=== PATIENT | male | born 1975 | race Caucasian/White ===

== ENCOUNTER → 2020-06-09 | Day surgery (SDC) | payer BC, OTHER ==
[2020-06-05 11:27] LABS: BASOPHILS # (AUTO) 0.1 (0.0-0.1); BASOPHILS % 0.7 % (0.0-1.0); EOSINOPHILS # (AUTO) 0.2 (0.0-0.4); HEMATOCRIT 43.9 % (38.2-49.6); HEMOGLOBIN 14.7 g/dL (14.0-18.0); LYMPHOCYTES # (AUTO) 3.1 (1.0-3.2); LYMPHOCYTES % 34.9 % (18.0-39.1); MEAN CORPUSCULAR HEMOGLOBIN 30.6 pg (28-32); MEAN CORPUSCULAR HGB CONC 33.5 g/dL (31-35); MEAN CORPUSCULAR VOLUME 91.3 fL (81-99); MONOCYTES # (AUTO) 0.5 (0.2-0.8); MONOCYTES % 5.5 % (4.4-11.3); NEUTROPHILS % 56.5 % (38.7-80.0); PLATELET COUNT 249 x10e3/uL (140-360); RED BLOOD COUNT 4.81 x10e6/uL (4.3-5.7); RED CELL DISTRIBUTION WIDTH 12.3 % (11.7-14.4)
[2020-06-05 11:44] LABS: ALBUMIN/GLOBULIN RATIO 1.3 (0.8-2.0); ANION GAP 12.1 mmol/L (8-16); CALCIUM 9.2 mg/dL (8.4-10.2); CREATININE, SERUM 1.29 mg/dL (0.72-1.25); POTASSIUM 4.1 mmol/L (3.5-5.1)
[~2020-06-09] VITALS: Ht 180.3 cm; Wt 102.1 kg
[2020-06-09] VITALS (15 sets, daily range): BP systolic 102–131; BP diastolic 51–83
[~2020-06-09] MED LIST: ALPRAZOLAM 0.5 MG TAB ONE; ASPIR 8181 MG PO; ASPIRIN 325 MG TAB ONE; BIVALRIUDIN 250 MG/VIAL VIAL IV ONE; CRESTOR10 MG PO; DIPHENHYDRAMINE HCL 25 MG CAP ONE; FENOFIBRATE145 MG; FENTANYL CITRATE/PF 100MCG/2 ML INJ ONE; HEPARIN SOD (PORCINE) 1000 UNIT/ML 30ML ONE; HEPARIN SOD/SOD CHLORIDE 2,000 ML ONE; IOPAMIDOL 300MG/ML 100 ML INFUS..BTL IV ONE; IOPAMIDOL 370 MG/ML 200 ML INFUS..BTL INJ ONE; LIDOCAINE HCL 2% LOCAL 20 ML VIAL ONE; MIDAZOLAM HCL 2 MG/2 ML VIAL ONE; NITROGLYCERIN/D5W 200 MCG/ML 250 ML ONE; PLAVIX75 MG PO; PRASUGREL 10 MG TAB ONE; RANEXA500 MG PO; SODIUM CHLORIDE 0.9% 1000ML 1,000 ML ONE; SODIUM CHLORIDE 0.9% 50ML 50 ML ONE; WELLBUTRIN75 MG PO
--- NOTE | 2020-06-09 08:45 | NUR ---
0845amRECEIVING NOTE [employer] REC[employer] DEPT............................................................... Bedside report received from Riddhi HARRIS. Identifierx2. Alert oriented and appropriate, PERRLA, respirations even and unlabored to room air. Pulses x4 extremities equal and strong. Pedal pulses PT/DP X2 1+/1+ DP (palpable),Pt x2 1+/1+ (Doppler) and marked. Cap fill brisk < 3 sec. Skin warm and dry integrity appears D/I IV 20g to rt arm 100cchr, presents healthy w/o s/s of infiltration or complaint. Abdomen soft and supple. pt offered toileting, denies need to urinate or defecate. No personal affects with patient. Family at bedside .. Pt and family verbalizes understanding of POC. Currently w/o complaint of pain or need. ds/rn
--- NOTE | 2020-06-09 10:00 | NUR ---
1000am rt groin site no gross issues pain,pallor,pressure or dysrhythmia.Hob up and tolerating po intake . gone for lunch. Bed brakes on,call light at bedside and side rails up aware of importance to call for assistance Lad FIX Dr Amanda with stent. Md notified family/ with phone conversation.Lower extremity fix with return visit. Stable vs on sinus gail. ds/rn
--- NOTE | 2020-06-09 11:50 | NUR ---
1130Text Dr Amanda orders resume home meds,reconciled home meds with MD, and patient.Still dc home planned @ 1300pm. No acute distress. Stable VS,rt Mynx intake No gross issues pain,pallor or pressure.Void qs and tolerating po intake.Pt orientation back to baseline orientation ds/rn
--- NOTE | 2020-06-09 12:54 | Operative Report ---
DATE OF PROCEDURE: 06/09/2020 SURGEON: Albert Amanda MD INDICATIONS: 1. Coronary artery disease, angina, abnormal stress test. 2. Peripheral arterial disease with claudication of both lower extremities. COMPLICATIONS: None. BLOOD LOSS: Minimal. RECOMMENDATION: Staged intervention on right common iliac artery. Dual antiplatelet therapy for life. PROCEDURES PERFORMED: 1. Ultrasound-guided access in the right femoral artery with sheath placement. 2. Conscious sedation. Hemodynamic neurological monitoring and recovery by lab associate RN, supervision by , 65 minutes. 3. Left heart catheterization, selective coronary angiography. 4. Stent placement in the mid left anterior descending artery. 5. Abdominal aortogram with abdominal aorta catheter placement runoff to bilateral femoral artery. 6. Deployment of right groin Mynx closure device. COMPLICATIONS: None. DESCRIPTION OF PROCEDURE: Access obtained in the right femoral artery using ultrasound guidance. A 6-Fijian sheath was placed. Coronary angiography demonstrated mild disease in the left main, ostial circumflex 70% stenosis, 3 mm vessel. Left anterior descending artery, mid 70% to 80% stenosis, remaining circumflex right coronary artery had diffuse 20% to 30% stenosis. LV end-diastolic pressure was normal. Abdominal aortogram demonstrated 80% in-stent restenosis of the previously placed right common iliac stent. Left common and external iliac stents appeared to be widely patent. A decision was made to intervene on the left anterior descending artery. The patient received intravenous Angiomax and oral prasugrel and aspirin for anticoagulation. The left main was cannulated using an XB3.5, 6-Fijian guiding catheter. A short Runthrough wire was advanced for support. Primary stent 3.0 x 12 mm Synergy deployed at 20 atmospheres in the mid left anterior descending artery with excellent end result, less than 10% residual stenosis, DONTAE-3 flow. No complications. Wire and guide sheath removed. Right groin TR band applied. The patient discharged home same day. MD HELEN RangelB/MODL /[id number]
--- NOTE | 2020-06-09 13:00 | NUR ---
1300 pm [employer] RECOVERY DISCHARGE NURSING NOTE Pt meets DC criteria. Rt groin Mynx assessed for s/s of complication and presence of hematoma. Skin warm, dry, no discolor, and pulses present. IV removed from right hand. Distal tip appears intact. VS WNL. Pt denies pain, sob, or need at this time. Family at BS Review of discharge paperwork and follow up instructions. verbalized understanding. Pt to wheelchair and transported to front of hospital. Transferred to private vehicle under own strength w/o incident with DC paperwork in hand. - savanna/rn
== END | disposition home or self-care (01) ==
LOC: CATH LAB 05:58
PROVIDERS: ATTEND Internal Medicine Interventional Cardiology
DX: I25.110 Atherosclerotic heart disease of native coronary artery with unstable angina pectoris (principal); I70.213 Atherosclerosis of native arteries of extremities with intermittent claudication, bilateral legs; R94.39 Abnormal result of other cardiovascular function study; Z95.820 Peripheral vascular angioplasty status with implants and grafts; Z01.812 Encounter for preprocedural laboratory examination; Z11.59 Encounter for screening for other viral diseases; Z79.02 Long term (current) use of antithrombotics/antiplatelets; Z79.82 Long term (current) use of aspirin
CPT/HCPCS: 36415; 75625; 75716; 76937; 80053; 85025; 87635; 92928; 93454; C1760; C1769 ×3; C1874; C1887; J0583; J2001; J2250; J3010; J7030; Q9967 ×2; 75630; 99152; 99153; J1644; U0002

== ENCOUNTER 2020-12-08 17:08 | Observation (INO) | payer BC ==
[~2020-12-08] VITALS: Ht 180.3 cm; Wt 102.1 kg
[~2020-12-08 17:08] MED LIST changes: -ALPRAZOLAM 0.5 MG TAB ONE; -ASPIRIN 325 MG TAB ONE; -BIVALRIUDIN 250 MG/VIAL VIAL IV ONE; -DIPHENHYDRAMINE HCL 25 MG CAP ONE; -FENTANYL CITRATE/PF 100MCG/2 ML INJ ONE; -HEPARIN SOD (PORCINE) 1000 UNIT/ML 30ML ONE; -HEPARIN SOD/SOD CHLORIDE 2,000 ML ONE; -IOPAMIDOL 300MG/ML 100 ML INFUS..BTL IV ONE; -IOPAMIDOL 370 MG/ML 200 ML INFUS..BTL INJ ONE; -LIDOCAINE HCL 2% LOCAL 20 ML VIAL ONE; -MIDAZOLAM HCL 2 MG/2 ML VIAL ONE; -NITROGLYCERIN/D5W 200 MCG/ML 250 ML ONE; -PRASUGREL 10 MG TAB ONE; -SODIUM CHLORIDE 0.9% 1000ML 1,000 ML ONE; -SODIUM CHLORIDE 0.9% 50ML 50 ML ONE
[2020-12-08] MEDS ORDERED: ASPIRIN 81 MG CHEW TAB PO ONE (17:30)
[2020-12-08 18:13] LABS: BASOPHILS # (AUTO) 0.1 (0.0-0.1); BASOPHILS % 0.7 % (0.0-1.0); EOSINOPHILS # (AUTO) 0.2 (0.0-0.4); EOSINOPHILS % 2.6 % (0.0-6.0); HEMOGLOBIN 13.9 g/dL (14.0-18.0); LYMPHOCYTES # (AUTO) 2.5 (1.0-3.2); LYMPHOCYTES % 28.4 % (18.0-39.1); MEAN CORPUSCULAR HEMOGLOBIN 30.4 pg (28-32); MEAN CORPUSCULAR HGB CONC 33.9 g/dL (31-35); MEAN CORPUSCULAR VOLUME 89.7 fL (81-99); MONOCYTES # (AUTO) 0.5 (0.2-0.8); MONOCYTES % 5.7 % (4.4-11.3); NEUTROPHILS # (AUTO) 5.5 (2.1-6.9); NEUTROPHILS % 62.2 % (38.7-80.0); PLATELET COUNT 299 x10e3/uL (140-360); RED BLOOD COUNT 4.57 x10e6/uL (4.3-5.7); RED CELL DISTRIBUTION WIDTH 12.6 % (11.7-14.4)
[2020-12-08 18:34] LABS: ALANINE AMINOTRANSFERASE 33 IU/L (0-55); ALBUMIN 3.8 g/dL (3.5-5.0); ALBUMIN/GLOBULIN RATIO 1.2 (0.8-2.0); ALKALINE PHOSPHATASE 51 IU/L (40-150); ANION GAP 13.6 mmol/L (8-16); BLOOD UREA NITROGEN 17 mg/dL (7-26); BUN/CREATININE RATIO 13 (6-25); CALCIUM 8.6 mg/dL (8.4-10.2); CARBON DIOXIDE 25 mmol/L (22-29); CHLORIDE 105 mmol/L (98-107); CREATINE KINASE 259 IU/L (30-200); CREATININE, SERUM 1.34 mg/dL (0.72-1.25); EST GLOMERULAR FILTRATION RATE 57 ML/MIN (60-); GLUCOSE 127 mg/dL (74-118); POTASSIUM 3.6 mmol/L (3.5-5.1); SODIUM 140 mmol/L (136-145)
[2020-12-08] MEDS ORDERED: SODIUM CHLORIDE FLUSH 10 ML SYR INJ PRN (20:30)
[2020-12-08] MEDS ORDERED: NITROGLYCERIN 0.4 MG SUBL SL PRN (20:30)
[2020-12-08] MEDS ORDERED: ONDANSETRON HCL INJ 2MG/ML 2ML 2 MG/ML VIAL IV PRN (20:30)
[2020-12-08] MEDS ORDERED: LORAZEPAM INJ 2 MG/ML VIAL IV ONE (20:30)
[2020-12-08] MEDS: MORPHINE SULFATE INJ 2 MG/ML SYR IV PRN (21:10)
[2020-12-08] MEDS: FAMOTIDINE 20 MG/2 ML VIAL IV SCH (21:10)
[2020-12-08 22:20] VITALS: BP 132/88
[2020-12-08] MEDS ORDERED: OXYCODONE-ACET1 EAC3 (22:36)
[2020-12-09] MEDS ORDERED: ONDANSETRON HCL INJ 2MG/ML 2ML 2 MG/ML VIAL IV PRN (00:15)
[2020-12-09] MEDS ORDERED: METOPROLOL TARTRATE INJ 1 MG/ML VIAL IV PRN (00:15)
[2020-12-09] MEDS ORDERED: POLYETHYLENE GLYCOL 3350 17 GM PACK PO PRN (00:15)
[2020-12-09] MEDS ORDERED: TEMAZEPAM 7.5 MG CAP PO PRN (00:15)
[2020-12-09] MEDS ORDERED: ACETAMINOPHEN 325 MG TAB PO PRN (00:15)
[2020-12-09 00:35] VITALS: BP 110/75
[2020-12-09] MEDS: MORPHINE SULFATE INJ 2 MG/ML SYR IV PRN (01:35)
[2020-12-09 02:03] LABS: CREATINE KINASE MB 1.3 ng/mL (0-5.0)
[2020-12-09 04:20] VITALS: BP_SYST 138; BP_SYST 95; BP_DIAS 60; BP_DIAS 63
[2020-12-09 05:45] LABS: BASOPHILS % 0.5 % (0.0-1.0); EOSINOPHILS # (AUTO) 0.3 (0.0-0.4); EOSINOPHILS % 3.4 % (0.0-6.0); HEMATOCRIT 40.3 % (38.2-49.6); HEMOGLOBIN 13.6 g/dL (14.0-18.0); LYMPHOCYTES # (AUTO) 2.8 (1.0-3.2); LYMPHOCYTES % 35.8 % (18.0-39.1); MEAN CORPUSCULAR HEMOGLOBIN 30.9 pg (28-32); MEAN CORPUSCULAR HGB CONC 33.7 g/dL (31-35); MEAN CORPUSCULAR VOLUME 91.6 fL (81-99); MONOCYTES # (AUTO) 0.7 (0.2-0.8); MONOCYTES % 8.4 % (4.4-11.3); NEUTROPHILS % 51.6 % (38.7-80.0); PLATELET COUNT 264 x10e3/uL (140-360); RED CELL DISTRIBUTION WIDTH 12.5 % (11.7-14.4)
[2020-12-09 06:16] LABS: ANION GAP 10.1 mmol/L (8-16); BLOOD UREA NITROGEN 16 mg/dL (7-26); BUN/CREATININE RATIO 13 (6-25); CALCIUM 8.1 mg/dL (8.4-10.2); CARBON DIOXIDE 23 mmol/L (22-29); CHLORIDE 110 mmol/L (98-107); CREATININE, SERUM 1.28 mg/dL (0.72-1.25); EST GLOMERULAR FILTRATION RATE > 60 ML/MIN (60-); GLUCOSE 118 mg/dL (74-118); PHOSPHORUS 3.7 MG/DL (2.3-4.7); POTASSIUM 4.1 mmol/L (3.5-5.1); SODIUM 139 mmol/L (136-145)
[2020-12-09 06:21] LABS: CHOL/HDL RATIO 6.4 (3.9-4.7)
[2020-12-09 06:24] LABS: THYROID STIMULATING HORMONE 1.675 uIU/mL (0.350-4.940)
[2020-12-09 07:36] VITALS: BP 103/58
[2020-12-09 08:21] VITALS: BP 103/58
[2020-12-09] MEDS ORDERED: ASPIRIN 81 MG ENTERIC COATED PO SCH (09:00)
[2020-12-09] MEDS ORDERED: CLOPIDOGREL BISULFATE 75 MG TAB PO SCH ×2 (09:00)
[2020-12-09] MEDS ORDERED: DOCUSATE SODIUM 100 MG CAP PO SCH (09:00)
[2020-12-09] MEDS ORDERED: SIMVASTATIN 20 MG TAB PO SCH ×2 (09:00→21:00)
[2020-12-09] MEDS ORDERED: ASPIRIN 81 MG CHEW TAB PO SCH (09:00)
[2020-12-09] MEDS: FAMOTIDINE 20 MG/2 ML VIAL IV SCH (09:03)
[2020-12-09] MEDS ORDERED: PANTOPRAZOLE 40 MG 10ML VIAL IV SCH (09:45)
[2020-12-09] MEDS ORDERED: METOCLOPRAMIDE HCL 10 MG/2ML VIAL IV SCH (14:00)
[2020-12-09] MEDS ORDERED: FENOFIBRATE 145 MG TAB PO SCH (21:00)
== END 2020-12-09 10:54 | disposition left against medical advice (07) ==
LOC: ER 17:18 → ERHOLD 20:53 → MED/SURG 22:09
PROVIDERS: ADMIT Internal Medicine; ATTEND Internal Medicine
DX: I25.110 Atherosclerotic heart disease of native coronary artery with unstable angina pectoris (principal); E78.5 Hyperlipidemia, unspecified; I73.9 Peripheral vascular disease, unspecified; F17.210 Nicotine dependence, cigarettes, uncomplicated; Z95.5 Presence of coronary angioplasty implant and graft; Z82.49 Family history of ischemic heart disease and other diseases of the circulatory system; Z95.820 Peripheral vascular angioplasty status with implants and grafts; Z90.49 Acquired absence of other specified parts of digestive tract; I10 Essential (primary) hypertension; Z20.822 Contact with and (suspected) exposure to COVID-19
CPT/HCPCS: 36415 ×2; 71045; 80048; 80053; 80061; 82550 ×2; 82553 ×2; 83036; 83735; 84100; 84443; 84484 ×2; 85025 ×2; 93005; 99284; G0378 ×2; J2060; J2270 ×2; J2405; U0002